=== PATIENT | female | born 1970 | race Two or more races ===

== ENCOUNTER 2017-03-09 10:01 | Outpatient (CLI) | payer OTHER | END 2017-03-09 10:09 | disposition home or self-care (01) | LOC: RAD 501 10:01 → EDBD 10:01 → RAD 501 10:09 | DX: M25.512 Pain in left shoulder (principal) ==

== ENCOUNTER → 2017-03-09 | Outpatient (CLI) | payer OTHER ==
[~2017-03-09] VITALS: Ht 152.4 cm; Wt 76.2 kg
== END | disposition home or self-care (01) ==
LOC: EDBD 07:53 → PPHC 07:53
DX: Z00.00 Encounter for general adult medical examination without abnormal findings (principal)

== ENCOUNTER 2017-03-13 08:45 | Outpatient (CLI) | payer OTHER | END 2017-03-13 09:28 | disposition home or self-care (01) | LOC: LAB 08:45 | DX: R51 Headache (principal); R42 Dizziness and giddiness ==

== ENCOUNTER 2017-03-13 10:01 | Outpatient (CLI) | payer OTHER | END 2017-03-13 14:34 | disposition home or self-care (01) | LOC: MAMO-SONO 10:01 | DX: N64.4 Mastodynia (principal); Z12.31 Encounter for screening mammogram for malignant neoplasm of breast ==

== ENCOUNTER → 2017-03-16 | Outpatient (CLI) | payer OTHER ==
[~2017-03-16] VITALS: Ht 152.4 cm; Wt 79.4 kg
== END | disposition home or self-care (01) ==
LOC: PPHC 07:37
DX: Z01.89 Encounter for other specified special examinations (principal)

== ENCOUNTER 2017-06-30 11:35 | Outpatient (CLI) | payer OTHER | END 2017-06-30 11:41 | disposition home or self-care (01) | LOC: LAB 11:35 | DX: D50.9 Iron deficiency anemia, unspecified (principal); E83.51 Hypocalcemia; N39.0 Urinary tract infection, site not specified; D68.8 Other specified coagulation defects; N92.0 Excessive and frequent menstruation with regular cycle ==

== ENCOUNTER 2017-06-30 12:05 | Outpatient (CLI) | payer OTHER | END 2017-06-30 15:57 | disposition home or self-care (01) | LOC: SONOGRAMA 12:05 → MAMO-SONO 13:45 → SONOGRAMA 15:57 | DX: N92.1 Excessive and frequent menstruation with irregular cycle (principal); Z12.31 Encounter for screening mammogram for malignant neoplasm of breast ==